=== PATIENT | female | born 1965 | race Caucasian/White ===

== ENCOUNTER 2018-10-25 15:14 | Outpatient (CLI) | payer OTHER ==
--- NOTE | 2018-10-25 18:43 | MRI ---
MRI RIGHT HIP WITHOUT CONTRAST 10/25/18 HISTORY: Longstanding hip pain. COMPARISON: Radiograph right hip, 08/03/16. FINDINGS: There is moderate to severe right sided hip dysplasia with coxa magna deformity, subsequent severe se condary osteoarthritic disease with complete cartilage loss, subcortical cyst formation and reactive marrow edema throughout the acetabulum, right superior pubic ramus root, right femoral head. There is some flattening of the right femoral head from articular surface remodeling. The left hip demonstrates very mild dysplastic changes. Advanced degenerative disease of the pubic sy mphysis. No acute fracture or malalignment. LABRUM: There is maceration of the right labrum. There is abnormal synovitis as well as capsular thickening o f the right hip. There is a small iliopsoas bursa effusion. There is moderate right greater trochanteric bursa effusio n. Mild to moderate tendinosis gluteus medius tendon. There is abnormal pericapsular edema of the right hip. Intrapelvic soft tissues are unremarkable. IMPRESSION: Moderate to severe right sided hip dysplasia with subsequent severe secondary degenerative changes. T here is mild flattening of the femoral head, coxa magna deformity, and complete cartilage loss. Ortho pedic consultation for evaluation for hip replacement is recommended. POS: CET
== END 2018-10-25 15:15 | disposition home or self-care (01) ==
LOC: TBSIIMAG 15:14
PROVIDERS: ATTEND Neurological Surgery
DX: M25.551 Pain in right hip (principal); M21.951 Unspecified acquired deformity of right thigh; M16.11 Unilateral primary osteoarthritis, right hip

== ENCOUNTER 2020-06-22 14:35 | Outpatient (CLI) | payer OTHER ==
--- NOTE | 2020-06-22 16:15 | MRI ---
Exam: Thoracic spine MRI with and without contrast HISTORY: Thoracic myelopathy. New onset numbness and tingling down the left leg into the foot, status post surgery 6 weeks ago. FINDINGS: Appropriate T1 marrow signal intensity of the thoracic vertebra with the exception of the T 9 level where there is a hemangioma. Thoracic spine vertebral body heights are maintained. No fracture. No significant STIR hyperintensity to suggest ligamentous injury or vertebral body edema. Postcontrast images do not demonstrate any abnormal enhancement of the thoracic vertebra. The thoraci c cord does not imaged any abnormal enhancement. There is no evidence of thoracic cord malacia or cord expansion. There is a subtle T2 hyperintensity along the posterior left aspect of the thoracic c ord at the T5 level. There is no associated enhancement. The remainder of the thoracic cord does not demonstrate any T2 hyperintensity. Conus medullaris terminates at the mid L1 level. C7-T1: Central disc herniation with mild central canal stenosis. From T1-T2 through T12-L1, no posterior disc abnormality. No significant central canal stenosis or si gnificant neural foraminal narrowing. The localizer demonstrates artifact projecting over the brain. Etiology is uncertain. There is eviden ce of significant degenerative change of the cervical spine which is also incompletely evaluated on this exam. IMPRESSION: 1. No abnormal enhancement. 2. Focal area of T2 hyperintensity along the posterior left aspect of the thoracic cord at the T5 lev el. Correlate for possible remote demyelinating plaque. 3. There does appear to be multilevel severe degenerative change of the cervical spine, incompletely evaluated. There is metallic susceptibility artifact projecting over the cerebrum on the localizer images. Dedicated imaging of the brain is recommended. MERT T. Transcribed Date/Time: 06/22/2020 4:35 PM
== END 2020-06-22 14:36 | disposition home or self-care (01) ==
LOC: TBSIIMAG 14:35
PROVIDERS: ATTEND Neurological Surgery
DX: M47.14 Other spondylosis with myelopathy, thoracic region (principal); M47.812 Spondylosis without myelopathy or radiculopathy, cervical region
CPT/HCPCS: 72157

== ENCOUNTER 2020-07-06 07:28 | Outpatient (CLI) | payer BC ==
--- NOTE | 2020-07-07 09:39 | MRI ---
MRI BRAIN WITH AND WITHOUT CONTRAST: DATE: 07/07/2020 HISTORY: 54-year-old female with "aR 20.2 paresthesia in extremities" TECHNIQUE: Multiplanar, multisequence MRI of the brain obtained pre and post IV injection of gadolinium based co ntrast agent. FINDINGS: Incidental finding of enhancement in the right occipital lobe of 8 draining vein with medusa head bra nches representing DVA (developmental venous anomaly: Venous angioma). Subtle bilaterally symmetrical T2 and FLAIR faint hyperintense signal at lateral aspects of bilateral thalami near junction with posterior limbs of internal capsules, continuing into bilateral cerebral peduncles of midbrain, then anterior kd, into the bilateral anterior medullary pyramids. H owever, no definite involvement of motor cortex (precentral gyrus) is identified. The ventricles are normal in size and configuration. There is no midline shift or any other evidence of mass effect. There is no extra-axial fluid collection. There is no other intra-axial signal abnormality, other abnormal enhancement, mass, recent hemorrhage, or restricted diffusion. IMPRESSION: 1) Bilaterally symmetrical, faint, subtle signal abnormality along the bilateral corticospinal tracts . This is nonspecific, and can be seen in normal individuals, but can also be seen in amyotrophic lateral sclerosis (ALS). Recommend clinical correlation. Consider neurology consultation. 2) no other significant abnormality identified.
--- NOTE | 2020-07-07 10:49 | MRI ---
MRI CERVICAL SPINE WITH AND WITHOUT CONTRAST: INDICATION: Tingling in extremities. Gait instability. FINDINGS: The cervical vertebrae maintain normal height. Vertebral body signal is normal. The disk spaces are preserved. There are mild degenerative changes noted with mild osteophytes seen from the cervical v ertebrae anteriorly. No significant disk bulge or spondylosis at C2-3 or C3-4 levels. No central canal or foraminal steno sis at either of these levels. At C4-5: Posterior disk bulge and spondylosis abut the anterior cord. No significant foraminal sten osis noticed. At C5-6: Posterior disk bulge and spondylosis abut the anterior cord. No significant foraminal sten osis. At C6-7: There is more prominent posterior disk bulge and spondylosis with a central disk protrusion which does mildly compress and flatten the anterior cord. Mild left foraminal narrowing due to unci tucker hypertrophy. At C7-T1: No significant abnormality. Cervical cord signal is normally maintained. No abnormal enhancement identified. IMPRESSION: Posterior disk and spondylitic changes are noted at C4-5, C5-6, and C6-7. Mild cord compression at C 6-7 as described above. POS: [facility]W
== END 2020-07-06 07:29 | disposition home or self-care (01) ==
LOC: SCSMRI 07:28
PROVIDERS: ATTEND Nurse Practitioner Acute Care
DX: R20.2 Paresthesia of skin (principal); M47.812 Spondylosis without myelopathy or radiculopathy, cervical region; G95.20 Unspecified cord compression
CPT/HCPCS: 70553; 72156

== ENCOUNTER 2022-04-21 15:25 | Inpatient (IN) | payer OTHER ==
[2022-04-21] MEDS ORDERED: Guaifenesin DM 100-10/5 ML UDCUP PO PRN (18:48)
[2022-04-21] MEDS ORDERED: Ondansetron ODT 4 MG TAB PO PRN (18:48)
[2022-04-21] MEDS ORDERED: Senokot S 8.6-50 MG TAB PO PRN (18:48)
[2022-04-21] MEDS ORDERED: Ondansetron PF 4 MG/2 ML Vial IVP PRN (18:48)
[2022-04-21] MEDS ORDERED: Bisacodyl 10 MG SUPP PR PRN (18:48)
[2022-04-21] MEDS ORDERED: Bisacodyl 5 MG TAB PO PRN (18:48)
[2022-04-21] MEDS ORDERED: Acetaminophen 650 MG Suppository PR PRN (18:48)
[2022-04-21 19:34] LABS: #Lymphocytes 0.6 thou/uL (1.20-3.40); #Monocytes 0.3 thou/uL (0.11-0.59); #Neutrophils 9.8 thou/uL (1.40-6.50); %Basophils 0.2 % (0.0-1.0); %Eosinophils 0.1 % (0.0-10.0); %Lymphocytes 5.6 % (21.0-51.0); %Monocytes 2.4 % (0.0-10.0); %Neutrophils 91.6 % (42.0-75.0); Hemoglobin 11.7 g/dL (12.0-16.0); Mean Corpuscular HGB CONC 33.6 g/dL (32.0-36.0); Mean Corpuscular Hemoglobin 32.9 pg (27.0-31.0); Mean Corpuscular Volume 97.9 fL (78.0-98.0); Mean Platelet Volume 5.9 fL (7.4-10.4); Platelet Count 250 thou/uL (130-400); RBC Distribution Width 11.4 % (11.5-14.5); Red Blood Cell (RBC) Count 3.56 mill/uL (4.20-5.40); White Blood Cell (WBC) Count 10.7 thou/uL (4.8-10.8)
[2022-04-21] MEDS: Sodium Chloride 0.9% 1,000 ML IV SCH (19:42)
[2022-04-21] MEDS ORDERED: Acetaminophen 325 MG TAB ONE (19:51)
[2022-04-21] MEDS: Acetaminophen 325 MG TAB PO PRN (19:53)
[2022-04-21 19:57] LABS: ALT (SGPT) 24 U/L (8-55); AST (SGOT) 25 U/L (5-34); Alkaline Phosphatase 52 U/L (40-110); Anion Gap 12 mmol/L (10-20); BUN (Urea Nitrogen) 13 mg/dL (9.8-20.1); Bilirubin, Total 0.3 mg/dL (0.2-1.2); Calc. Creatinine Clearance 100 mL/min (70-130); Calcium 8.2 mg/dL (7.8-10.44); Carbon Dioxide 24 mmol/L (22-29); Chloride 108 mmol/L (98-107); Estimated GFR 103; Globulin 2.7 g/dL (2.4-3.5); Glucose 111 mg/dL (70-105); Potassium 4.5 mmol/L (3.5-5.1); Protein, Total 6.7 g/dL (6.0-8.3); Sodium 139 mmol/L (136-145)
[2022-04-21] MEDS ORDERED: Famotidine 20 MG TAB ONE (21:18)
[2022-04-21] MEDS ORDERED: Famotidine/PF 20 mg/2ml Vial ONE (21:18)
[2022-04-21] MEDS: Famotidine 20 MG TAB PO SCH (21:27)
[2022-04-21] MEDS: Famotidine/PF 20 mg/2ml Vial SLOW IVP SCH (21:30)
[2022-04-21 23:28] VITALS: BMI 25.6
[2022-04-22] MEDS ORDERED: Zolpidem Tartrate 5 MG TAB PO SCH (00:15)
[2022-04-22] MEDS: VANCOMYCIN 1.25 GM/250 ML BAG 1.25 GM in Premix Bag 1 BAG IVPB SCH ×2 (01:13→15:26)
[2022-04-22 05:19] LABS: #Lymphocytes 1.7 thou/uL (1.20-3.40); #Monocytes 0.7 thou/uL (0.11-0.59); #Neutrophils 7.4 thou/uL (1.40-6.50); %Basophils 0.3 % (0.0-1.0); %Eosinophils 0.2 % (0.0-10.0); %Lymphocytes 17.1 % (21.0-51.0); %Monocytes 7.4 % (0.0-10.0); Hemoglobin 12.1 g/dL (12.0-16.0); Mean Corpuscular Hemoglobin 32.5 pg (27.0-31.0); Mean Corpuscular Volume 98.3 fL (78.0-98.0); Platelet Count 256 thou/uL (130-400); RBC Distribution Width 11.5 % (11.5-14.5); Red Blood Cell (RBC) Count 3.73 mill/uL (4.20-5.40); White Blood Cell (WBC) Count 9.8 thou/uL (4.8-10.8)
[2022-04-22 05:29] LABS: Anion Gap 12 mmol/L (10-20); BUN (Urea Nitrogen) 10 mg/dL (9.8-20.1); Calc. Creatinine Clearance 101 mL/min (70-130); Calcium 8.6 mg/dL (7.8-10.44); Carbon Dioxide 23 mmol/L (22-29); Chloride 110 mmol/L (98-107); Estimated GFR 103; Glucose 86 mg/dL (70-105); Potassium 3.6 mmol/L (3.5-5.1); Sodium 141 mmol/L (136-145)
[2022-04-22] MEDS: Famotidine/PF 20 mg/2ml Vial SLOW IVP SCH ×2 (08:12→20:20)
[2022-04-22] MEDS: Famotidine 20 MG TAB PO SCH ×2 (08:12→21:22)
[2022-04-22] MEDS: cefTRIAXone\\ROCEPHIN 2 GM in Sodium Chloride 0.9% 100 ML IVPB SCH (08:13)
[2022-04-22] MEDS: Azithromycin 500 MG in Sodium Chloride 0.9% 250 ML 250 ML IVPB SCH (11:24)
[2022-04-22] MEDS: Sodium Chloride 0.9% 1,000 ML IV SCH (17:48)
[2022-04-22] MEDS: Zolpidem Tartrate 5 MG TAB PO SCH (21:22)
[2022-04-23] MEDS: Vancomycin 1.5 GRAM/300 ML BAG 1.5 GM in Premix Bag 1 BAG IVPB SCH ×2 (02:07→14:30)
[2022-04-23] MEDS: Levothyroxine Sodium 75 MCG TAB PO SCH (05:55)
[2022-04-23] MEDS: Famotidine 20 MG TAB PO SCH ×2 (08:03→20:34)
[2022-04-23] MEDS: cefTRIAXone\\ROCEPHIN 2 GM in Sodium Chloride 0.9% 100 ML IVPB SCH (08:04)
[2022-04-23] MEDS: Famotidine/PF 20 mg/2ml Vial SLOW IVP SCH ×2 (08:04→20:30)
[2022-04-23 08:34] LABS: #Eosinphils 0.1 thou/uL (0.0-0.7); #Lymphocytes 2.3 thou/uL (1.20-3.40); #Monocytes 0.5 thou/uL (0.11-0.59); #Neutrophils 5.2 thou/uL (1.40-6.50); %Basophils 0.4 % (0.0-1.0); %Eosinophils 1.1 % (0.0-10.0); %Monocytes 6.2 % (0.0-10.0); %Neutrophils 64.4 % (42.0-75.0); Hemoglobin 12.6 g/dL (12.0-16.0); Mean Corpuscular HGB CONC 32.8 g/dL (32.0-36.0); Mean Corpuscular Hemoglobin 32.5 pg (27.0-31.0); Mean Corpuscular Volume 99.1 fL (78.0-98.0); Mean Platelet Volume 6.2 fL (7.4-10.4); Platelet Count 271 thou/uL (130-400); RBC Distribution Width 11.7 % (11.5-14.5); Red Blood Cell (RBC) Count 3.88 mill/uL (4.20-5.40)
[2022-04-23 08:59] LABS: ALT (SGPT) 28 U/L (8-55); AST (SGOT) 25 U/L (5-34); Albumin 4.3 g/dL (3.5-5.0); Alkaline Phosphatase 58 U/L (40-110); Anion Gap 13 mmol/L (10-20); BUN (Urea Nitrogen) 5 mg/dL (9.8-20.1); Bilirubin, Total 0.6 mg/dL (0.2-1.2); Calc. Creatinine Clearance 104 mL/min (70-130); Calcium 9.3 mg/dL (7.8-10.44); Carbon Dioxide 25 mmol/L (22-29); Chloride 106 mmol/L (98-107); Estimated GFR 103; Globulin 3.6 g/dL (2.4-3.5); Glucose 96 mg/dL (70-105); Potassium 3.8 mmol/L (3.5-5.1); Protein, Total 7.9 g/dL (6.0-8.3); Sodium 140 mmol/L (136-145)
[2022-04-23] MEDS: Azithromycin 500 MG in Sodium Chloride 0.9% 250 ML 250 ML IVPB SCH (10:25)
[2022-04-23] MEDS: Acetaminophen 325 MG TAB PO PRN (10:27)
[2022-04-23] MEDS: Sodium Chloride 0.9% 1,000 ML IV SCH (14:30)
[2022-04-23] MEDS: Zolpidem Tartrate 5 MG TAB PO SCH (20:34)
[2022-04-24] MEDS: Vancomycin 1.5 GRAM/300 ML BAG 1.5 GM in Premix Bag 1 BAG IVPB SCH (02:24)
[2022-04-24] MEDS: Levothyroxine Sodium 75 MCG TAB PO SCH (06:10)
[2022-04-24] MEDS: Famotidine 20 MG TAB PO SCH (08:46)
[2022-04-24] MEDS: cefTRIAXone\\ROCEPHIN 2 GM in Sodium Chloride 0.9% 100 ML IVPB SCH (08:46)
[2022-04-24] MEDS: Famotidine/PF 20 mg/2ml Vial SLOW IVP SCH (08:47)
[2022-04-24] MEDS: Acetaminophen 325 MG TAB PO PRN (08:48)
[2022-04-24 11:25] VITALS: BP 132/86; TEMP 98.1
== END 2022-04-24 16:16 | disposition home or self-care (01) | DRG 100 ==
LOC: ERS 15:25 → ERHOLD 17:32 → 2SW 23:09
PROVIDERS: ADMIT Internal Medicine; ATTEND Internal Medicine
PROC: 009U3ZX Drainage of Spinal Canal, Percutaneous Approach, Diagnostic (ICD-10-PCS; principal; 2022-04-21)
DX: R56.9 Unspecified convulsions (principal); G92.8 Other toxic encephalopathy; Z20.822 Contact with and (suspected) exposure to COVID-19; F32.A Depression, unspecified; T50.995A Adverse effect of other drugs, medicaments and biological substances, initial encounter; F12.10 Cannabis abuse, uncomplicated; Z96.642 Presence of left artificial hip joint; F17.210 Nicotine dependence, cigarettes, uncomplicated; E87.6 Hypokalemia; E03.9 Hypothyroidism, unspecified; G93.89 Other specified disorders of brain; Z79.899 Other long term (current) drug therapy; Z79.890 Hormone replacement therapy; Z98.51 Tubal ligation status
CPT/HCPCS: 36415; 70551; 80048; 80053; 80202; 83605; 83735; 85025; 95712; 95819; 95957; 99285; J0456; J0696; J2405; J3370; J3490; J7050; S0028

== ENCOUNTER 2022-06-14 13:06 | Outpatient (CLI) | payer BC | END 2022-06-14 13:07 | disposition home or self-care (01) | LOC: SCSMRI 13:06 | PROVIDERS: ATTEND Physical Medicine & Rehabilitation | DX: M48.02 Spinal stenosis, cervical region (principal); R26.9 Unspecified abnormalities of gait and mobility; R29.2 Abnormal reflex; R25.2 Cramp and spasm; M50.321 Other cervical disc degeneration at C4-C5 level; M47.812 Spondylosis without myelopathy or radiculopathy, cervical region; M47.813 Spondylosis without myelopathy or radiculopathy, cervicothoracic region; M50.23 Other cervical disc displacement, cervicothoracic region | CPT/HCPCS: 72156 ==